=== PATIENT | female | born 1990 | race African-American/Black ===

== ENCOUNTER 2024-09-23 09:44 | Emergency (ER) | payer OTHER ==
[~2024-09-23] VITALS: Ht 170.2 cm; Wt 70.0 kg
[2024-09-23 10:40] LABS: CHLORIDE 105 mEq/L (98-107); POTASSIUM 3.7 mEq/L (3.5-5.1); SODIUM 138 mEq/L (136-145)
[2024-09-23 10:41] LABS: CARBON DIOXIDE 22 mEq/L (21-32)
[2024-09-23 10:46] LABS: CREATININE 0.7 mg/dL (0.6-1.0); GLUCOSE 116 mg/dL (70-105); UREA NITROGEN BLOOD 9 mg/dL (9-23)
[2024-09-23 10:50] LABS: BASOPHILS % 1.2 % (0.0-2.0); DIFFERENTIAL COMMENT 0; EOSINOPHILS % 11.2 % (0.0-5.0); HEMATOCRIT. 34.6 % (36.0-48.0); HEMOGLOBIN. 10.7 g/dL (12.0-16.0); LYMPHOCYTES % 18.7 % (20.0-50.0); MEAN CORPUSCULAR HEMOGLOBIN 22.6 pg (28.0-32.0); MONOCYTES % 4.7 % (2.0-8.0); NEUTROPHILS % 64.2 % (40.0-76.0); PLATELET 444 x1000/uL (130-400); RED BLOOD CELL COUNT 4.73 mill/uL (4.2-5.4); RED CELL DISTRIBUTION WIDTH 16.9 % (11.6-14.6); WHITE BLOOD COUNT 11.1 x1000/uL (4.5-11.0)
[2024-09-23 12:11] LABS: HCG SCREEN NEGATIVE
[2024-09-23] MEDS: ACETAMINOPHEN 325MG TABLET PO ONE (12:29)
[2024-09-23] MEDS: METHYLPREDNISOLONE SOD SUCC 125MG/2ML (ACT-O-VIAL) IV ONE (12:30)
[2024-09-23 13:30] VITALS: PULSE 93; RESP 20; O2SAT 99
[2024-09-23] MEDS: ALBUTEROL (0.083%) 2.5MG/3ML NEB HHN ONE (13:30)
[2024-09-23] MEDS: IPRATROPIUM/ALBUTEROL 0.5-3(2.5)MG/3ML NEB HHN ONE ×2 (13:30→18:15)
[2024-09-23] MEDS: ALBUTEROL (0.083%) 2.5MG/3ML NEB ONE (13:30)
[2024-09-23] MEDS: MORPHINE SULFATE 2 MG/ML INJ (NOT FOR IM USE) IV ONE (13:34)
[2024-09-23 18:15] VITALS: PULSE 91; RESP 20; O2SAT 99
[2024-09-23 18:41] VITALS: TEMP 36.8; O2SAT 99
[2024-09-23 19:05] VITALS: BP 118/77; PULSE 95; RESP 16
[2024-09-23] MEDS: MORPHINE SULFATE 2 MG/ML INJ (NOT FOR IM USE) IV NR (19:05)
== END 2024-09-23 19:24 | disposition short-term general hospital (02) ==
LOC: ER 09:44 → CANBEDREQ 14:48 → ER 19:24
DX: R07.9 Chest pain, unspecified (principal); J45.909 Unspecified asthma, uncomplicated; Z20.822 Contact with and (suspected) exposure to COVID-19
CPT/HCPCS: 80048; 84703; 85025; 85379; 87420; 87804 ×2; 36415; 71045; 71275; 94640; 94070; 96374; 96375; 96376; 99285; 87426; J2919; J2270; Z7610 ×6